=== PATIENT | female | born 1995 | race Caucasian/White ===

== ENCOUNTER 2016-10-07 22:17 | Emergency (ER) | payer BC ==
[~2016-10-07] VITALS: Ht 157.5 cm; Wt 59.7 kg
[~2016-10-07 22:17] MED LIST: BUSP10 PO; SERT50 PO
[2016-10-07 22:20] VITALS: BP 117/67; PULSE 86; RESP 16; TEMP 98.5; O2SAT 100
[2016-10-07] MEDS ORDERED: BIRTH (22:42)
[2016-10-07] MEDS ORDERED: ZOLO100T PO (22:42)
[2016-10-07 22:43] VITALS: BP 117/67; PULSE 86; RESP 18; TEMP 98.5; O2SAT 100
[2016-10-07] MEDS ORDERED: BIRTH CONTROL (22:43)
--- NOTE | 2016-10-07 22:55 | PD ---
HPI Chief Complaint: Abdominal Pain Time Seen by Provider: 22:40 Travel History International Travel<30 days: No Contact w/Intl Traveler<30days: No Traveled to known affect area: No History of Present Illness HPI This 20-year-old female is complaining of lower abdominal pain. She says she's been having the pain for several days. She has not had any dysuria. Pain is slightly greater on the left side of the right. She has never been . She took a home test and it was negative PFS Past Medical History Asthma: Yes Anxiety: Yes Depression: Yes Diminished Hearing: No Psychiatric: Yes (MOOD DISORDER-HX DEPRESSION) Immunizations Current: Yes ?: Unknown LMP: 2 WEEKS AGO Menopausal: No : 0 Past Surgical History Abdominal Aneurysm Repair: No Social History Alcohol Use: No Tobacco Use: Yes (02/17 PPD) Substance Use: No Allergies-Medications (Allergen,Severity, Reaction): Coded Allergies: No Known Allergies (Verified , 10/07/16) Reported Meds & Prescriptions Reported Meds & Active Scripts Active Reported [ Control] Zoloft (Sertraline HCl) 100 Mg Tab 100 Mg PO DAILY Review of Systems General / Constitutional: No: Fever, Chills Eyes: No: Diploplia, Blurred Vision HENT: No: Headaches, Vertigo Cardiovascular: No: Chest Pain or Discomfort, Palpitations Genitourinary: Positive: Pelvic Pain, No: Urgency, Frequency Musculoskeletal: No: Myalgias, Arthralgias Skin: No Rash Neurologic: No: Weakness, Dizziness Physical Exam Narrative GENERAL: Well-developed female SKIN: Focused skin assessment warm/dry. HEAD: Atraumatic. Normocephalic. EYES: Pupils equal and round. No scleral icterus. No injection or drainage. ENT: No nasal bleeding or discharge. Mucous membranes pink and moist. NECK: Trachea midline. No JVD. GASTROINTESTINAL: Abdomen soft, non-tender, nondistended. Hepatic and splenic margins not palpable. Pelvic: There is some whitish discharge. There is some pain with movement of cervix. It is bilateral adnexal tenderness without mass. The tenderness is greater on the left side MUSCULOSKELETAL: No obvious deformities. No clubbing. No cyanosis. No edema. NEUROLOGICAL: Awake and alert. No obvious cranial nerve deficits. Motor grossly within normal limits. Normal speech. PSYCHIATRIC: Appropriate mood and affect; insight and judgment normal. Data Data Last Documented VS Vital Signs Date Time Temp Pulse Resp B/P (MAP) Pulse Ox O2 Delivery O2 Flow Rate FiO2 10/07/16 22:43 98.5 86 18 117/67 (84) 100 Orders Orders Gc And Chlamydia Pcr (10/07/16 22:44) Wet Prep Profile (10/07/16 22:44) Urinalysis - C+S If Indicated (10/07/16 22:44) Ed Urine Pregnancytest Poc (10/07/16 22:44) Labs Laboratory Tests Test 10/07/16 22:53 Clue Cells (Wet Prep) NONE SEEN Vaginal Trichomonas (Wet Prep) NONE SEEN Vaginal Yeast (Wet Prep) NONE SEEN MDM Medical Decision Making Medical Screen Exam Complete: Yes Emergency Medical Condition: Yes Medical Record Reviewed: Yes Differential Diagnosis Differential includes ovarian cyst, cervicitis, Narrative Course Exam she does have pain with movement of the cervix suggestive of cervicitis. Her test is negative. She'll be given Rocephin followed by doxycycline Diagnosis Primary Impression: Cervicitis Scripts Doxycycline Hyclate DR (Doxycycline Hyclate DR) 100 Mg Tab 100 MG PO BID for Infection for 10 Days, TAB 0 Refills Prov: Rod Kovacs MD 10/07/16 Disposition: 01 DISCHARGE HOME Condition: Stable Rod Kovacs MD Oct 07, 2016 22:55
[2016-10-07] MEDS ORDERED: DOXY1TAB6 PO (23:33)
[2016-10-07] MEDS ORDERED: cefTRIAXone 250 MG VIAL IM ONE (23:45)
[2016-10-07] MEDS ORDERED: LIDOCAINE HCL 1% 50 ML VIAL XX ONE (23:45)
[2016-10-07 23:46] LABS: BLOOD, URINE NEG (NEG); GLUCOSE,URINE NEG (NEG); KETONE, URINE NEG (NEG); NITRITE,URINE NEG (NEG); PH, URINE 5.5 (5.0-8.5)
[2016-10-07 23:50] LABS: URINE COLOR YELLOW (YELLW/STRAW)
[2016-10-07 23:51] LABS: COMMENT (UR) CULT NOT INDICATED; CULTURE IF INDICATED CULT NOT INDICATED; MUCUS URINE FEW /lpf (OCC); RBC, URINE 0-3 /hpf (0-3); SQUAMOUS EPITHELIAL CELL URINE 0-5 /hpf (0-5); WBC, URINE 0-2 /hpf (0-5)
[2016-10-08 00:16] VITALS: BP 108/64
[2016-10-08 02:38] LABS: CHLAMYDIA PCR NOT DETECTED (NOT DETECT); NEISSERIA PCR NOT DETECTED (NOT DETECT)
== END 2016-10-08 00:09 | disposition home or self-care (01) ==
LOC: PHED 22:17
DX: N72 Inflammatory disease of cervix uteri (principal); J45.909 Unspecified asthma, uncomplicated; F17.210 Nicotine dependence, cigarettes, uncomplicated
CPT/HCPCS: 81001; 84703; 87210; 87491; 87591; 96372; 99284; J0696

== ENCOUNTER 2016-10-26 16:58 | Emergency (ER) | payer BC ==
[~2016-10-26 16:58] MED LIST changes: +BIRTH CONTROL; -BUSP10 PO; +DOXY1TAB6 PO; -SERT50 PO; +ZOLO100T PO
[2016-10-26 17:27] VITALS: BP 125/78; PULSE 87; RESP 20; TEMP 98; O2SAT 100
[2016-10-26] MEDS ORDERED: SERT-132 PO (18:19)
[2016-10-26] MEDS ORDERED: KETOROLAC TROMETHAMINE 30 MG/ML (IVP) VIAL IV PUSH ONE (18:30)
--- NOTE | 2016-10-26 18:45 | PD ---
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 The patient states her pain started approximately 4 weeks ago. The pain is located in the lower aspect of the pelvis, intermittent, sharp, and worse during her menstrual cycle. The patient was seen in the emergency department 2 weeks ago where she had a pelvic examination and was prescribed antibiotics. However, her pain continues. Last menstrual cycle was one week ago, she is sexually active. She denies any nausea, vomiting, diarrhea, constipation, or upper abdominal pain. She does note vaginal discharge which is occasionally thick and white, has been intermittently present for 2 years. The patient has been unable to obtain an appointment with her primary physician, Dr. Sarath Enriquez. [facility] Past Medical History Asthma: Yes Anxiety: Yes Depression: Yes Diminished Hearing: No Psychiatric: Yes (MOOD DISORDER-HX DEPRESSION) Immunizations Current: Yes ?: Unknown LMP: 2 DAYS AGO Menopausal: No : 0 Past Surgical History Surgical History: No Previous Surgery Abdominal Aneurysm Repair: No Social History Alcohol Use: No Tobacco Use: Yes (VAPOR) Substance Use: No Allergies-Medications (Allergen,Severity, Reaction): Coded Allergies: No Known Allergies (Verified , 10/26/16) Reported Meds & Prescriptions Reported Meds & Active Scripts Active Reported Sertraline (Sertraline HCl) 50 Mg Tab 75 Mg PO DAILY [ Control] Review of Systems Except as stated in HPI: all other systems reviewed are Neg General / Constitutional: No: Fever Cardiovascular: No: Chest Pain or Discomfort Respiratory: No: Shortness of Breath Gastrointestinal: No: Nausea, Vomiting, Diarrhea, Abdominal Pain Genitourinary: Positive: Pelvic Pain, Discharge, No: Urgency, Frequency, Dysuria, Hematuria, Vaginal Bleeding Skin: No Rash Physical Exam Narrative GENERAL: Awake, alert, nontoxic-appearing 20-year-old female who appears her stated age and is in no acute respiratory distress. SKIN: Focused skin assessment warm/dry. HEAD: Atraumatic. Normocephalic. EYES: No injection or drainage. ENT: No nasal bleeding or discharge. Mucous membranes pink and moist. NECK: Trachea midline. No JVD. CARDIOVASCULAR: Regular rate and rhythm. No murmur appreciated. RESPIRATORY: No accessory muscle use. Clear to auscultation. Breath sounds equal bilaterally. GASTROINTESTINAL: Abdomen soft, mild tenderness in the lower abdomen bilateral but no guarding or rigidity. Back: Mild tenderness over both CVA. Genitourinary: The exam was performed in the presence of a female nurse. No rashes or lesions noted. Speculum examination reveals white discharge in the vaginal vault. Cervix is closed. MUSCULOSKELETAL: No obvious deformities. No clubbing. No cyanosis. No edema. NEUROLOGICAL: Awake and alert. No obvious cranial nerve deficits. Motor grossly within normal limits. Normal speech. PSYCHIATRIC: Appropriate mood and affect; insight and judgment normal. Data Data Last Documented VS Vital Signs Date Time Temp Pulse Resp B/P (MAP) Pulse Ox O2 Delivery O2 Flow Rate FiO2 10/26/16 21:35 10/26/16 20:36 76 18 99 Room Air 10/26/16 17:27 98.0 Orders Orders Complete Blood Count With Diff (10/26/16 18:25) Comprehensive Metabolic Panel (10/26/16 18:25) Gc And Chlamydia Pcr (10/26/16 18:25) Wet Prep Profile (10/26/16 18:25) Urinalysis - C+S If Indicated (10/26/16 18:25) Ed Urine Pregnancytest Poc (10/26/16 18:25) Ketorolac Inj (Toradol Inj) (10/26/16 18:30) Us Pelvis Comp W Doppler (10/26/16 ) Labs Laboratory Tests Test 10/26/16 19:15 White Blood Count 7.4 TH/MM3 Red Blood Count 4.63 MIL/MM3 Hemoglobin 13.7 GM/DL Hematocrit 41.5 % Mean Corpuscular Volume 89.6 FL Mean Corpuscular Hemoglobin 29.5 PG Mean Corpuscular Hemoglobin Concent 32.9 % Red Cell Distribution Width 13.1 % Platelet Count 309 TH/MM3 Mean Platelet Volume 9.2 FL Neutrophils (%) (Auto) 60.9 % Lymphocytes (%) (Auto) 29.5 % Monocytes (%) (Auto) 7.4 % Eosinophils (%) (Auto) 1.8 % Basophils (%) (Auto) 0.4 % Neutrophils # (Auto) 4.6 TH/MM3 Lymphocytes # (Auto) 2.2 TH/MM3 Monocytes # (Auto) 0.5 TH/MM3 Eosinophils # (Auto) 0.1 TH/MM3 Basophils # (Auto) 0.0 TH/MM3 CBC Comment DIFF FINAL Differential Comment Urine Color YELLOW Urine Turbidity CLEAR Urine pH 6.0 Urine Specific [place] 1.035 Urine Protein NEG mg/dL Urine Glucose (UA) NEG mg/dL Urine Ketones TRACE mg/dL Urine Occult Blood NEG Urine Nitrite NEG Urine Bilirubin NEG Urine Leukocyte Esterase NEG Urine RBC 0-3 /hpf Urine WBC 3-5 /hpf Urine Squamous Epithelial Cells 0-5 /hpf Urine Mucus MOD /lpf Microscopic Urinalysis Comment CULT NOT INDICATED Clue Cells (Wet Prep) NONE SEEN Vaginal Trichomonas (Wet Prep) NONE SEEN Vaginal Yeast (Wet Prep) NONE SEEN Blood Urea Nitrogen 15 MG/DL Creatinine 0.77 MG/DL Random Glucose 81 MG/DL Total Protein 7.0 GM/DL Albumin 3.5 GM/DL Calcium Level 8.6 MG/DL Alkaline Phosphatase 67 U/L Aspartate Amino Transf (AST/SGOT) 10 U/L Alanine Aminotransferase (ALT/SGPT) 15 U/L Total Bilirubin 0.3 MG/DL Sodium Level 140 MEQ/L Potassium Level 3.9 MEQ/L Chloride Level 106 MEQ/L Carbon Dioxide Level 28.0 MEQ/L Anion Gap 6 MEQ/L Estimat Glomerular Filtration Rate 96 ML/MIN Chlamydia trachomatis DNA (PCR) NOT DETECTED Neisseria gonorrhoeae DNA (PCR) NOT DETECTED MDM Medical Decision Making Medical Screen Exam Complete: Yes Emergency Medical Condition: Yes Medical Record Reviewed: Yes Differential Diagnosis Differential diagnosis includes cervicitis, PID, UTI, ectopic , , endometritis, endometriosis, atypical appendicitis, ovarian cyst. Narrative Course IV was established, labs are drawn and sent, and the patient was placed on cardiac telemetry monitoring and continuous pulse oximetry monitoring. Pelvic exam was performed in the presence of a female nurse. The patient was administered Toradol 30 mg intravenously. Ultrasound of the pelvis was obtained. Wet prep and gonorrhea/chlamydia were sent to lab. However, I reviewed the EMR and the patient's wet prep and gonorrhea/chlamydia 2 weeks ago were negative. The patient was signed out to the oncoming physician at 7 PM with labs and ultrasound pending. Diagnosis Primary Impression: Pelvic pain in female Disposition: DISCHARGE HOME Condition: Stable Damaso Bains MD Oct 26, 2016 18:45
--- NOTE | 2016-10-26 19:19 | PD ---
Data Data Last Documented VS Vital Signs Date Time Temp Pulse Resp B/P (MAP) Pulse Ox O2 Delivery O2 Flow Rate FiO2 10/26/16 21:35 10/26/16 20:36 76 18 99 Room Air 10/26/16 17:27 98.0 Orders Orders Complete Blood Count With Diff (10/26/16 18:25) Comprehensive Metabolic Panel (10/26/16 18:25) Gc And Chlamydia Pcr (10/26/16 18:25) Wet Prep Profile (10/26/16 18:25) Urinalysis - C+S If Indicated (10/26/16 18:25) Ed Urine Pregnancytest Poc (10/26/16 18:25) Ketorolac Inj (Toradol Inj) (10/26/16 18:30) Us Pelvis Comp W Doppler (10/26/16 ) Labs Laboratory Tests Test 10/26/16 19:15 White Blood Count 7.4 TH/MM3 Red Blood Count 4.63 MIL/MM3 Hemoglobin 13.7 GM/DL Hematocrit 41.5 % Mean Corpuscular Volume 89.6 FL Mean Corpuscular Hemoglobin 29.5 PG Mean Corpuscular Hemoglobin Concent 32.9 % Red Cell Distribution Width 13.1 % Platelet Count 309 TH/MM3 Mean Platelet Volume 9.2 FL Neutrophils (%) (Auto) 60.9 % Lymphocytes (%) (Auto) 29.5 % Monocytes (%) (Auto) 7.4 % Eosinophils (%) (Auto) 1.8 % Basophils (%) (Auto) 0.4 % Neutrophils # (Auto) 4.6 TH/MM3 Lymphocytes # (Auto) 2.2 TH/MM3 Monocytes # (Auto) 0.5 TH/MM3 Eosinophils # (Auto) 0.1 TH/MM3 Basophils # (Auto) 0.0 TH/MM3 CBC Comment DIFF FINAL Differential Comment Urine Color YELLOW Urine Turbidity CLEAR Urine pH 6.0 Urine Specific [place] 1.035 Urine Protein NEG mg/dL Urine Glucose (UA) NEG mg/dL Urine Ketones TRACE mg/dL Urine Occult Blood NEG Urine Nitrite NEG Urine Bilirubin NEG Urine Leukocyte Esterase NEG Urine RBC 0-3 /hpf Urine WBC 3-5 /hpf Urine Squamous Epithelial Cells 0-5 /hpf Urine Mucus MOD /lpf Microscopic Urinalysis Comment CULT NOT INDICATED Clue Cells (Wet Prep) NONE SEEN Vaginal Trichomonas (Wet Prep) NONE SEEN Vaginal Yeast (Wet Prep) NONE SEEN Blood Urea Nitrogen 15 MG/DL Creatinine 0.77 MG/DL Random Glucose 81 MG/DL Total Protein 7.0 GM/DL Albumin 3.5 GM/DL Calcium Level 8.6 MG/DL Alkaline Phosphatase 67 U/L Aspartate Amino Transf (AST/SGOT) 10 U/L Alanine Aminotransferase (ALT/SGPT) 15 U/L Total Bilirubin 0.3 MG/DL Sodium Level 140 MEQ/L Potassium Level 3.9 MEQ/L Chloride Level 106 MEQ/L Carbon Dioxide Level 28.0 MEQ/L Anion Gap 6 MEQ/L Estimat Glomerular Filtration Rate 96 ML/MIN MDM Supervised Visit with JESUS: No Narrative Course Patient care assumed from Dr. Bains at 1900, this is a 20-year-old female who presents with suprapubic pain left greater than right for the past few months. She's been evaluated here before as well as to [facility]. She did have some discharge according to Dr. Bains according the patient she is always tested for STDs and then sent home. She had an ultrasound today to make for a more complete workup which is completely benign. On my examination the patient' s abdomen is very benign, she is lying in a stretcher with her significant other in no obvious distress. I discussed with her that no definitive cause of her belly pain can be established but suspect endometriosis. Discussed need for follow-up with an RECREATION TECHNICIAN to discuss further and for further workup. Discussed return to ED criteria symptomatic management at home. Diagnosis Primary Impression: Pelvic pain in female Disposition: 01 DISCHARGE HOME Condition: Stable Darrell Dale MD Oct 26, 2016 19:19
[2016-10-26 19:20] VITALS: BP 121/82; PULSE 64; RESP 16; O2SAT 99
[2016-10-26 19:28] LABS: AUTOMATED NEUTROPHIL # 4.6 TH/MM3 (1.8-7.7); BASOPHIL % 0.4 % (0.0-2.0); BLOOD, URINE NEG (NEG); EOSINOPHIL # 0.1 TH/MM3 (0-0.4); EOSINOPHIL % 1.8 % (0.0-4.0); GLUCOSE,URINE NEG (NEG); HEMATOCRIT 41.5 % (35.0-46.0); HEMO FLAGS DIFF FINAL; KETONE, URINE TRACE mg/dL (NEG); LYMPH % 29.5 % (9.0-44.0); LYMPHOCYTE # 2.2 TH/MM3 (1.0-4.8); MEAN CELL VOLUME 89.6 FL (80.0-100.0); MEAN CORPUSCULAR HEMOGLOBIN 29.5 PG (27.0-34.0); MEAN CORPUSCULAR HGB CONC 32.9 % (32.0-36.0); MONO % 7.4 % (0.0-8.0); NEUT % 60.9 % (16.0-70.0); NITRITE,URINE NEG (NEG); PLATELET COUNT 309 TH/MM3 (150-450); RED BLOOD COUNT 4.63 MIL/MM3 (4.00-5.30); RED CELL DISTRIBUTION WIDTH 13.1 % (11.6-17.2); WHITE BLOOD COUNT 7.4 TH/MM3 (4.0-11.0)
[2016-10-26 19:37] LABS: CHLORIDE 106 MEQ/L (98-107); POTASSIUM 3.9 MEQ/L (3.5-5.1); SODIUM (NA) 140 MEQ/L (136-145)
[2016-10-26 19:41] LABS: ANION GAP 6 MEQ/L (5-15); BLOOD UREA NITROGEN 15 MG/DL (7-18)
[2016-10-26 19:44] LABS: ALT (GPT) 15 U/L (9-42); AST (GOT) 10 U/L (16-38); GLOMERULAR FILTRATION RATE 96 ML/MIN (>89)
[2016-10-26 19:46] LABS: TOTAL BILIRUBIN ADULT 0.3 MG/DL (0.2-1.0)
[2016-10-26 19:47] LABS: ALKALINE PHOSPHATASE 67 U/L (45-117)
[2016-10-26 19:50] LABS: URINE COLOR YELLOW (YELLW/STRAW)
[2016-10-26 19:51] LABS: COMMENT (UR) CULT NOT INDICATED; CULTURE IF INDICATED CULT NOT INDICATED; MUCUS URINE MOD /lpf (OCC); RBC, URINE 0-3 /hpf (0-3); SQUAMOUS EPITHELIAL CELL URINE 0-5 /hpf (0-5)
[2016-10-26 20:36] VITALS: BP 117/83; PULSE 76; RESP 18; O2SAT 99
--- NOTE | 2016-10-26 20:44 | RADRPT ---
EXAM DATE/TIME: 10/26/2016 20:09 [facility] COMPARISON: No previous studies available for comparison. INDICATIONS : Pelvic pain. MEDICAL HISTORY : Asthma. Depression. Anxiety. Pelvic pain. SURGICAL HISTORY : None. ENCOUNTER: Initial ACUITY: 3 months PAIN SCORE: 7/10 LOCATION: Bilateral pelvis. MEASUREMENTS: UTERUS: 6.8 x 4.5 x 3.1 cm ENDOMETRIAL STRIPE: 3 mm RIGHT OVARY: 3.2 x 1.8 x 1.9 cm LEFT OVARY: 2.8 x 1.7 x 1.8 cm FINDINGS: UTERUS: The myometrium has homogeneous echotexture without mass. RIGHT OVARY: Ovary contains no mass or significant cystic lesion. Blood flow demonstrated. LEFT OVARY: Ovary contains no mass or significant cystic lesion. Blood flow demonstrated. MISCELLANEOUS: No free fluid. CONCLUSION: Normal pelvic ultrasound. No torsion or other acute abnormality. Jordan Lira MD on October 26, 2016 at 20:42 Board Certified Radiologist. This report was verified electronically.
[2016-10-26 23:31] LABS: CHLAMYDIA PCR NOT DETECTED (NOT DETECT); NEISSERIA PCR NOT DETECTED (NOT DETECT)
== END 2016-10-26 21:49 | disposition home or self-care (01) ==
LOC: PHED 16:58
DX: R10.2 Pelvic and perineal pain (principal); J45.909 Unspecified asthma, uncomplicated
CPT/HCPCS: 76856; 80053; 81001; 84703; 85025; 87210; 87491; 87591; 93975; 96374; 99285; J1885

== ENCOUNTER 2017-06-06 18:23 | Emergency (ER) | payer BC ==
[~2017-06-06] VITALS: Ht 160 cm; Wt 62.1 kg
[~2017-06-06 18:23] MED LIST changes: -DOXY1TAB6 PO; +SERT-132 PO; -ZOLO100T PO
[2017-06-06 18:29] VITALS: BP 124/74; PULSE 90; RESP 16; TEMP 98.3; O2SAT 100
[2017-06-06] MEDS ORDERED: IBUPROFEN 600 MG TAB PO ONE (20:45)
[2017-06-06 20:57] LABS: BILIRUBIN, URINE NEG (NEG); BLOOD, URINE TRACE (NEG); GLUCOSE,URINE NEG (NEG); KETONE, URINE NEG (NEG); NITRITE,URINE NEG (NEG); PH, URINE 5.5 (5.0-8.5); URINE COLOR YELLOW (YELLW/STRAW); URINE LEUKOCYTE ESTERASE NEG (NEG)
[2017-06-06 21:06] LABS: BACTERIA, URINE MOD /hpf; RBC, URINE 0-3 /hpf (0-3); SQUAMOUS EPITHELIAL CELL URINE > 8 /hpf (0-5)
--- NOTE | 2017-06-06 21:29 | PD ---
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 She says she is 11 days late on her menstrual cycle and was concerned she may be . She says she took tests at home and one was faintly positive, but the others were negative. She says she has had discharge, but this is normal for her. She denies fever or chills. She says she has had some nausea, but no vomiting. Severity is mild. She denies any dysuria, urgency, frequency. PFSH Past Medical History Asthma: Yes Anxiety: Yes Depression: Yes Diminished Hearing: No Psychiatric: Yes (MOOD DISORDER-HX DEPRESSION) Immunizations Current: Yes ?: Unknown LMP: 04/25/17 Menopausal: No : 0 Past Surgical History Abdominal Aneurysm Repair: No Social History Alcohol Use: No Tobacco Use: No Substance Use: No Allergies-Medications (Allergen,Severity, Reaction): Coded Allergies: No Known Allergies (Verified Adverse Reaction, Unknown, 06/06/17) Reported Meds & Prescriptions Reported Meds & Active Scripts Active No Active Prescriptions or Reported Medications Review of Systems Except as stated in HPI: all other systems reviewed are Neg General / Constitutional: No: Fever, Chills HENT: No: Headaches, Lightheadedness Cardiovascular: No: Chest Pain or Discomfort Respiratory: No: Shortness of Breath Gastrointestinal: Positive: Nausea, Abdominal Pain, No: Vomiting Genitourinary: Positive: Discharge Musculoskeletal: No: Myalgias, Limited ROM Skin: No Rash, No Change in Pigmentation Neurologic: No: Weakness, Dizziness Physical Exam Narrative GENERAL: Awake and alert, no acute distress. SKIN: Focused skin assessment warm/dry. No wounds or signs of infection. HEAD: Atraumatic. Normocephalic. EYES: Pupils equal and round. No scleral icterus. ENT: Mucous membranes pink and moist. NECK: Trachea midline. No JVD. CARDIOVASCULAR: Regular rate and rhythm. No murmur appreciated. RESPIRATORY: No accessory muscle use. Clear to auscultation. Breath sounds equal bilaterally. GASTROINTESTINAL: Abdomen soft, non-tender, nondistended. : Exam performed in the presence of a nurse. Thick white discharge present. No cervical lesions. no CMT. MUSCULOSKELETAL: No obvious deformities. No clubbing. No cyanosis. No edema. NEUROLOGICAL: Awake and alert. No obvious cranial nerve deficits. Motor grossly within normal limits. Normal speech. PSYCHIATRIC: Appropriate mood and affect; insight and judgment normal. Data Data Last Documented VS Vital Signs Date Time Temp Pulse Resp B/P (MAP) Pulse Ox O2 Delivery O2 Flow Rate FiO2 06/06/17 18:29 98.3 90 16 124/74 (91) 100 Orders Orders Urinalysis - C+S If Indicated (06/06/17 20:32) Gc And Chlamydia Pcr (06/06/17 20:32) Wet Prep Profile (06/06/17 20:32) Ed Urine Pregnancytest Poc (06/06/17 20:32) Ibuprofen (Motrin) (06/06/17 20:45) Urine Culture (06/06/17 20:35) Labs Laboratory Tests Test 06/06/17 20:35 06/06/17 20:39 Urine Color YELLOW Urine Turbidity SL CLOUDY Urine pH 5.5 Urine Specific [place] 1.020 Urine Protein NEG mg/dL Urine Glucose (UA) NEG mg/dL Urine Ketones NEG mg/dL Urine Occult Blood TRACE Urine Nitrite NEG Urine Bilirubin NEG Urine Urobilinogen 0.2 MG/DL Urine Leukocyte Esterase NEG Urine RBC 0-3 /hpf Urine WBC 3-5 /hpf Urine Squamous Epithelial Cells > 8 /hpf Urine Bacteria MOD /hpf Microscopic Urinalysis Comment CULTURE INDICATED Clue Cells (Wet Prep) NONE SEEN Vaginal Trichomonas (Wet Prep) NONE SEEN Vaginal Yeast (Wet Prep) NONE SEEN MDM Medical Decision Making Medical Screen Exam Complete: Yes Emergency Medical Condition: Yes Medical Record Reviewed: Yes Differential Diagnosis UTI versus versus bacterial vaginitis versus GC/chlamydia Narrative Course Patient is a 21-year-old female who comes in complaining of lower abdominal cramping. Exam shows no acute abnormalities. Urine test is negative. Swab sent for wet prep as well as GC and chlamydia. Wet prep is negative. Patient is not having any UTI symptoms. She is advised follow-up with gynecology. Advised to take a test again if she does not get her menstrual cycle in the next couple of weeks. Advised return to the ED as needed for any worsening symptoms. Diagnosis Primary Impression: Abdominal pain Qualified Codes: R10.30 - Lower abdominal pain, unspecified Patient Instructions: Abdominal Pain (ED), General Instructions Additional Instructions: Follow-up with a primary care doctor. Repeat a test in a few weeks if he still do not get her menstrual cycle. Take ibuprofen as needed for pain. Return to the ED as needed for any worsening symptoms. Scripts No Active Prescriptions or Reported Meds Disposition: 01 DISCHARGE HOME Condition: Stable Vianca Manjarrez MD Jun 06, 2017 21:29
== END 2017-06-06 21:33 | disposition home or self-care (01) ==
LOC: PHED 18:23
DX: R10.30 Lower abdominal pain, unspecified (principal); R11.0 Nausea; J45.909 Unspecified asthma, uncomplicated; F41.9 Anxiety disorder, unspecified; F32.9 Major depressive disorder, single episode, unspecified; F39 Unspecified mood [affective] disorder
CPT/HCPCS: 81001; 84703; 87086; 87210; 87491; 87591; 99283